=== PATIENT | male | born 2000 | race African-American/Black ===

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

== ENCOUNTER 2021-08-03 12:00 | Emergency (ER) | payer OTHER, SELFPAY ==
--- NOTE | 2021-08-03 12:05 | ED.UPPEXIN ---
HPI - Extremity Injury (Upper) General Chief Complaint: Extremity Injury, Upper Stated Complaint: lt hand ring finger swollen Time Seen by Provider: 08/03/21 12:05 Source: patient, family and RN notes reviewed History of Present Illness HPI narrative: Patient is a 21-year-old male who presents the urgent care with complaints of left finger pain and swelling for approximately 1 week. Patient states that he has been putting ice on it and soaking it in water for pain relief. Denies of any fevers. Denies of any injury to the finger. No other acute complaints. No acute distress noted. Patient and mother aware of the plan of care. Some parts of this dictation were generated by voice recognition software and may contain typographical and/or grammatical inaccuracies. Related Data Allergies Allergy/AdvReac Type Severity Reaction Status Date / Time No Known Allergies Allergy Unknown Verified 12/25/20 14:08 Review of Systems Review of Systems: CONSTITUTIONAL: Denies fever, chills, or sweats. EYES: Denies visual changes, redness, or discharge. ENT: Denies rhinorrhea, congestion, sore throat, or otalgia. CARDIOVASCULAR: Denies chest pain, palpitations, or edema. RESPIRATORY: Denies cough or dyspnea. GASTROINTESTINAL: Denies abdominal pain, nausea, vomiting, or diarrhea. GENITOURINARY: Denies dysuria or hematuria. SKIN: Reports of pain and swelling surrounding the nailbed of the left ring finger MUSCULOSKELETAL: Denies back pain, joint pain, or myalgia. NEUROLOGIC: Denies headache, numbness, or weakness. All other systems reviewed are negative, except as documented in HPI. PMFSH Past Medical History Medical History No acute medical problems Family History Family History Father Diabetes mellitus Hypertension Social History Social History Smoking status: Never smoker Substance use: never Gender identity (if verbalized by the patient): Male Comments At the time of my signature, I reviewed and agree with the nursing past medical, surgical, social, and family history. There is no relevant family history pertinent to the patient complaint. Exam Narrative: GENERAL: This is a well-nourished, well-developed patient, in no apparent distress. HEAD: normocephalic, atraumatic. EYES: PERRL. Sclera clear/white. Vision is grossly intact. EARS: External ears normal NOSE: External nose normal with no obvious nasal discharge, nares without redness, no rhinorrhea. THROAT: Mucous membranes moist NECK: Neck supple CARDIOVASCULAR: Regular rate and rhythm without murmurs, gallops, or rubs. RESPIRATORY: Clear to auscultation. Breath sounds equal bilaterally. No wheezes, rales, or rhonchi. SKIN: Mildly erythemic/edematous radial paronychia to the left ring finger with moderate tenderness NEURO: awake, alert, and oriented to person, place and time. There were no obvious focal neurologic abnormalities. EXTREMITIES: No clubbing, cyanosis, or edema. Capillary refill less than 2 seconds to left upper extremity with positive strong left radial pulse Course Vital Signs Vital signs: Vital Signs Temperature 98.0 F 08/03/21 12:08 Pulse Rate 69 08/03/21 12:08 Respiratory Rate 16 08/03/21 12:08 Blood Pressure 146/80 H 08/03/21 12:08 Pulse Oximetry 100 08/03/21 12:08 Temperature 98.0 F 08/03/21 12:08 Pulse Rate 69 08/03/21 12:08 Respiratory Rate 16 08/03/21 12:08 Blood Pressure 146/80 H 08/03/21 12:08 Pulse Oximetry 100 08/03/21 12:08 Reviewed-patient is informed that they may have pre-hypertension or hypertension based on a blood pressure reading in the department. I recommend the patient call the primary care provider listed on their discharge instructions or a physician of their choice this week to arrange follow-up for further evaluation of po
[2021-08-03 12:08] VITALS: BP 146/80; PULSE 69; RESP 16; TEMP 36.7; O2SAT 100
== END 2021-08-03 12:28 | disposition home or self-care (01) ==
PROVIDERS: Emergency Provider Nurse Practitioner Family
DX: L03.012 Cellulitis of left finger (principal)
CPT/HCPCS: 10060; 99213; G0463

== ENCOUNTER 2023-06-27 00:20 | Emergency (ER) | payer OTHER, SELFPAY ==
--- NOTE | ~2023-06-27 | XR_ITS ---
Left foot Technique: AP, oblique, and lateral views were obtained. Clinical History: Laceration Findings: No acute fracture or dislocation is seen. Osseous alignment is anatomic. Joint spaces are p reserved without erosive or degenerative change. Soft tissues are unremarkable. Impression: Unremarkable left foot radiographs. Reviewed, dictated and finalized at [facility]. ESSING ENGINEER Impression: Unremarkable left foot radiographs.
[2023-06-27 00:27] VITALS: BP 141/75; PULSE 80; RESP 15; TEMP 36.8; O2SAT 100
--- NOTE | 2023-06-27 01:46 | ED.WOUNDLAC ---
HPI - Wound/Laceration General Chief Complaint: Wound/Laceration Stated Complaint: L foot lac, stepped on glass Time Seen by Provider: 06/27/23 01:38 Source: patient Mode of arrival: ambulatory Limitations: no limitations History of Present Illness HPI narrative: This is a 23 year old male that presents to the ER for laceration to the left foot sustained just prior to arrival. Reports he stepped on a glass cup and it shattered. Reports bleeding and pain to the area. Reports he is up to date on tetanus vaccination. Denies numbness. Related Data Allergies Allergy/AdvReac Type Severity Reaction Status Date / Time No Known Allergies Allergy Unknown Verified 12/25/20 14:08 Review of Systems Review of Systems: CONSTITUTIONAL: Denies fever SKIN: Reports laceration All systems reviewed & are unremarkable except as noted in HPI and below PMFSH Past Medical History Medical History No acute medical problems Family History Family History Father Diabetes mellitus Hypertension Social History Social History Smoking status: Never smoker Substance use: never Gender identity (if verbalized by the patient): Male Exam Narrative: GENERAL: Well-appearing, well-nourished, and in no acute distress. HEAD: Normocephalic, atraumatic. EYES: EOMI. EXTREMITIES: Normal range of motion. No edema. Left foot plantar surface with 2cm linear laceration into subcutaneous tissue SKIN: Warm, dry, no rash. NEURO: No focal deficits. Alert and oriented x3. PSYCH: Normal mood and affect Course Course Emergency Course: Patient educated on wound care Vital Signs Vital signs: Vital Signs Temperature 98.2 F 06/27/23 00:27 Pulse Rate 80 06/27/23 00:27 Respiratory Rate 15 06/27/23 00:27 Blood Pressure 141/75 H 06/27/23 00:27 Pulse Oximetry 100 06/27/23 00:27 Oxygen Delivery Room Air 06/27/23 00:27 Temperature 98.2 F 06/27/23 00:27 Pulse Rate 80 06/27/23 00:27 Respiratory Rate 15 06/27/23 00:27 Blood Pressure 141/75 H 06/27/23 00:27 Pulse Oximetry 100 06/27/23 00:27 Oxygen Delivery Room Air 06/27/23 00:27 Procedures Laceration Laceration 1: Date: 06/27/23 Time: 02:25 Site: lower extremity Side (If applicable): left Size (cm): 2 Description: linear Depth: simple, single layer Local Anesthetic: lidocaine 1% Amount of anesthesia used (mL): 2 Pre-repair: wound explored and irrigated ====== Skin Level ====== Skin layer closed with: nylon Size (cm): 4-0 Number of sutures: 2 Technique: simple, interrupted ====== Subcutaneous Layer ====== ====== Muscle Layer ====== ====== Tendon Layer ====== MDM - Wound/Laceration MDM Narrative Medical decision making narrative: Patient presents to the ER for laceration to left foot sustained just prior to arrival. His wound was irrigated and closed with sutures. Patient reports he is up-to-date on tetanus. Left foot x-ray without acute osseous abnormalities or evidence of foreign body. He was educated on further wound care. He is to follow-up with primary provider. He was given warnings to return to the ER Differential Diagnosis Differential diagnosis: Likely laceration and avulsion of skin Imaging Data My impression: Left foot x-ray without acute osseous abnormality or evidence of foreign body Critical Care Time Critical Care Time Critical Care Time: No Discharge Plan Discharge Clinical Impression: Laceration Patient Disposition: Home, Self-Care Condition: Stable Instructions: Antibiotic Form, Care For Your Stitches (ED), Laceration (ED) Additional Instructions: Return to the emergency department if you experience fever, redness or s
== END 2023-06-27 02:38 | disposition home or self-care (01) ==
LOC: ANHED 02:20
PROVIDERS: Emergency Provider Physician Assistant; PCP Internal Medicine
DX: S91.312A Laceration without foreign body, left foot, initial encounter (principal); W25.XXXA Contact with sharp glass, initial encounter
CPT/HCPCS: 12001; 73630; 99283

== ENCOUNTER 2023-07-09 14:31 | Emergency (ER) | payer OTHER, SELFPAY ==
[2023-07-09 14:40] VITALS: BP 123/73; PULSE 100; RESP 15; TEMP 36.4; O2SAT 100
--- NOTE | 2023-07-09 15:44 | ED.GENADULT ---
HPI - General Adult General Chief complaint: Unspecified Stated complaint: stitch removal Time Seen by Provider: 07/09/23 14:48 History of Present Illness HPI narrative: Nixon Atkinson is a 23 y/o male who presents today with reports of stepping on some glass and needs his sutures removed from the bottom of his foot. He states that he had two sutures placed about 12 days ago. Related Data Allergies Allergy/AdvReac Type Severity Reaction Status Date / Time No Known Allergies Allergy Unknown Verified 07/09/23 14:42 Review of Systems Review of Systems: CONSTITUTIONAL: Denies fever, chills, or sweats. EYES: Denies visual changes, redness, or discharge. ENT: Denies rhinorrhea, congestion, sore throat, or otalgia. CARDIOVASCULAR: Denies chest pain, palpitations, or edema. RESPIRATORY: Denies cough or dyspnea. GASTROINTESTINAL: Denies abdominal pain, nausea, vomiting, or diarrhea. GENITOURINARY: Denies dysuria or hematuria. SKIN: wound to the bottom of his left foot and wanting sutures removed MUSCULOSKELETAL: Denies back pain, joint pain, or myalgia. NEUROLOGIC: Denies headache, numbness, dizziness, or weakness. PSYCHIATRIC: Denies anxiety or depression. PMFSH Past Medical History Medical History No acute medical problems Family History Family History Father Diabetes mellitus Hypertension Social History Social History Smoking status: Never smoker Substance use: never Gender identity (if verbalized by the patient): Male Exam Narrative: GENERAL: Well-appearing, well-nourished, and in no acute distress. HEAD: Normocephalic, atraumatic. EYES: PERRLA and EOMI. ENT: Nares clear, no rhinorrhea or epistaxis. Mucous membranes moist. Oropharynx without tonsillar hypertrophy exudate or other lesions. NECK: Supple. No adenopathy or masses. No carotid bruits or JVD CHEST: Clear to auscultation. No respiratory distress. No wheezes rales or rhonchi HEART: Regular rate and rhythm. No murmur heard. Normal peripheral pulses. ABDOMEN: Soft, nontender, nondistended, normal active bowel sounds. EXTREMITIES: Normal range of motion. No edema. healing wound to the bottom of left foot approximated / no drainage/ odor swelling noted. SKIN: Warm, dry, no rash. NEURO: No focal deficits. Alert and oriented x3. PSYCH: Normal mood and affect. Course Vital Signs Vital signs: Vital Signs Temperature 36.4 C 07/09/23 14:40 Pulse Rate 100 07/09/23 14:40 Respiratory Rate 15 07/09/23 14:40 Blood Pressure 123/73 07/09/23 14:40 Pulse Oximetry 100 07/09/23 14:40 Oxygen Delivery Room Air 07/09/23 14:40 Temperature 36.4 C 07/09/23 14:40 Pulse Rate 100 07/09/23 14:40 Respiratory Rate 15 07/09/23 14:40 Blood Pressure 123/73 07/09/23 14:40 Pulse Oximetry 100 07/09/23 14:40 Oxygen Delivery Room Air 07/09/23 14:40 Medical Decision Making MDM Narrative Medical decision making narrative: Wound approximated/no swelling/ erythema/ drainage/ odor/ evidence of infection two sutures removed without difficulty area cleansed / antibiotic ointment placed with Sterile dressing Telfa/ Kerlix Patient tolerated well Encouraged pt to continue to do wound care / and keep covered D/c home with follow up with PCP return precautions provided. Vital Signs Vital Signs: Vital Signs Temperature 36.4 C 07/09/23 14:40 Pulse Rate 100 07/09/23 14:40 Respiratory Rate 15 07/09/23 14:40 Blood Pressure 123/73 07/09/23 14:40 Pulse Oximetry 100 07/09/23 14:40 Oxygen Delivery Room Air 07/09/23 14:40 Temperature 36.4 C 07/09/23 14:40 Pulse Rate 100 07/09/23 14:40 Respiratory Rate 15 07/09/23 14:40 Blood Pressure 123/73 07/09/23 14:40 Pulse Oximetry 100 07/09/23 14:40 Oxygen Delivery Room Air
--- NOTE | 2023-07-09 15:51 | PC.NURSE ---
Stitches to left foot removed by EDP, Pt tolerated the procedure well without difficulty, area healed no s/s of infection.
== END 2023-07-09 16:13 | disposition home or self-care (01) ==
PROVIDERS: Emergency Provider Nurse Practitioner Family; PCP Internal Medicine
DX: S91.302D Unspecified open wound, left foot, subsequent encounter (principal); W25.XXXD Contact with sharp glass, subsequent encounter
CPT/HCPCS: 15853; 99281

== ENCOUNTER 2024-08-24 16:50 | Emergency (ER) | payer OTHER, SELFPAY ==
--- NOTE | ~2024-08-24 | XR_ITS ---
XR chest 2V Ordering provider: Niesha Myers PA-C History: 24 years Male with . cough, congetsion . Comparison: May 16, 2011 cysts FINDINGS: MEDIASTINUM: The cardiac silhouette is not enlarged. LUNGS: No infiltrates, effusions or pneumothorax. OTHER: No free air under the diaphragm. IMPRESSION: No acute cardiopulmonary pathology. Reviewed, dictated and finalized at location A. UMER STUDIES PROFESSOR
[2024-08-24 17:15] VITALS: BP 164/80; PULSE 99; RESP 19; TEMP 36.9; O2SAT 100
[2024-08-24 19:34] VITALS: O2SAT 100
[2024-08-24 19:38] VITALS: BP 160/84; PULSE 92; RESP 18; O2SAT 100
[2024-08-24 20:18] LABS: Influenza A QL RT-PCR Positive (Negative); Influenza B QL RT-PCR Negative (Negative); RSV RNA, RT-PCR Negative (Negative); SARS-CoV-2 RNA PCR Negative (Negative)
[2024-08-24 21:08] VITALS: TEMP 37.4
--- NOTE | 2024-08-24 21:11 | ED_ITS ---
HPI - URI/Sore Throat General Chief Complaint: Upper Respiratory Infection Stated Complaint: Congestion, Runny Nose Time Seen by Provider: 08/24/24 20:35 Source: patient Mode of arrival: ambulatory Limitations: no limitations History of Present Illness HPI Narrative: Patient is a 24-year-old male who presents the ED with report of URI symptoms. Patient reports having cough, congestion, rhinorrhea, sinus pressure, body aches, headache. States symptoms have been ongoing for the last couple weeks. Thought they were allergies. He has been taking allergy medicine, DayQuil, NyQuil with some improvement. Symptoms have become worse over the last couple of days. Denies fevers. Denies shortness of breath. Denies nausea, vomiting. Related Data Allergies Allergy/AdvReac Type Severity Reaction Status Date / Time No Known Allergies Allergy Unknown Verified 07/09/23 14:42 Review of Systems Review of Systems: All systems reviewed & are unremarkable except as noted in HPI. All systems reviewed & are unremarkable except as noted in HPI and below PMFSH Past Medical History Medical History No acute medical problems Family History Family History Father Diabetes mellitus Hypertension Social History Social History Smoking status: Never smoker Substance use: never Gender identity (if verbalized by the patient): Male Exam Narrative: GENERAL: Well appearing, obese with BMI of 38.1, non-toxic, in no acute distress. HEAD: Normocephalic, atraumatic. RESPIRATORY: Airway patent, respirations nonlabored. Clear to auscultation bilaterally, no rales, rhonchi, wheezing. CARDIOVASCULAR: Regular rate and rhythm MUSCULOSKELETAL: Moves all extremities. No gross deformities. SKIN: Warm, dry, normal color. NEURO: A&O X3. Speech clear. PSYCHIATRIC: Appropriate mood and affect. Normal interaction. Course Vital Signs Vital signs: Vital Signs Temperature 98.5 F 08/24/24 17:15 Pulse Rate 99 08/24/24 17:15 Respiratory Rate 19 08/24/24 17:15 Blood Pressure 164/80 H 08/24/24 17:15 Pulse Oximetry 100 08/24/24 17:15 Oxygen Delivery Room Air 08/24/24 17:15 Temperature 99.4 F 08/24/24 21:08 Pulse Rate 92 08/24/24 19:38 Respiratory Rate 18 08/24/24 19:38 Blood Pressure 160/84 H 08/24/24 19:38 Pulse Oximetry 100 08/24/24 19:38 Oxygen Delivery Room Air 08/24/24 19:34 MDM - URI/Sore Throat MDM Narrative Medical decision making narrative: Patient presented to ED with several day history of worsening URI symptoms. Influenza A positive. Consistent with clinical picture. Discussed management of such, will prescribe Tessalon Perles. Chest x-ray is clear. Patient will be discharged. Given strict return precautions. He agrees with plan. Discharged in stable condition. Medical Records Attestation: I reviewed the patient's medical records. Lab Data Attestation: I reviewed the patient's lab results. Labs: Lab Results 08/24/24 Range/Units 19:32 Influenza A (RT-PCR) Positive A (Negative) Influenza B (RT-PCR) Negative (Negative) RSV (RT-PCR) Negative (Negative) SARS-CoV-2 RNA (RT-PCR) Negative (Negative) Imaging Data Attestation: I personally reviewed and interpreted this imaging study as follows: Radiologist's impression: ITS Impressions Chest X-Ray 08/24/24 19:59 IMPRESSION: No acute cardiopulmonary pathology. Discharge Plan Discharge Clinical Impression: Influenza A Patient Disposition: Home, Self-Care Condition: Stable Instructions: Antibiotic Form, Influenza (ED), Viral Syndrome (ED), Cold Symptoms (ED) Additional Instructions: You were diagnosed with Influenza A today. Isolate at home as you are contagious. Stay well-hydrated at home. Recommend electrolyte rich fluids, Gatorade, Pedialyte, body armor. Utilize Tessalon Perles as needed for cough. Recommend Tylenol and Ibuprofen around the clock for discomfort and/or fevers. Recommend [id number] cough and cold medicines for symptom relief, Delsym, Mucinex, DayQuil, NyQuil, Sudafed, Robitussin, TheraFlu. Follow with primary care doctor upon resolution of symptoms. Return to the ED if you experience chest pain, difficulty breathing, unable to keep down food or drink, severe pain, or any other symptoms of concern. Patient Language: Arabic Prescriptions: New benzonatate 200 mg capsule 200 mg PO TID PRN (Reason: cough) Qty: 15 0RF No Action sulfamethoxazole-trimethoprim [Bactrim DS] 800-160 mg tablet 1 tablet PO Q12H Qty: 14 0RF levofloxacin 750 mg tablet 750 mg PO DAILY 5 Days Qty: 5 0RF Follow-up/Referrals: Carlos,MD Melo ([place]) [Primary Care Provider] - Time of Disposition: 21:14
[2024-08-24] MEDS: ACETAMINOPHEN 500 MG TABLET 1000 MG PO (21:19)
[2024-08-24] MEDS: BENZONATATE 100 MG CAPSULE 200 MG PO (21:20)
[2024-08-24] MEDS: KETOROLAC (*BKC) 60 MG/2 ML VIAL IM (21:22)
[2024-08-24 21:35] VITALS: BP 153/80; PULSE 94; RESP 17; TEMP 37.4; O2SAT 99
[2024-08-24 21:36] VITALS: BP 153/80; PULSE 94; RESP 17; O2SAT 99
== END 2024-08-24 21:38 | disposition home or self-care (01) ==
PROVIDERS: Emergency Provider Physician Assistant; PCP Internal Medicine
DX: J10.1 Influenza due to other identified influenza virus with other respiratory manifestations (principal); Z20.822 Contact with and (suspected) exposure to COVID-19
CPT/HCPCS: 71046; 87637; 96372; 99283; A9270; J1885

== ENCOUNTER 2024-12-10 09:29 | Emergency (ER) | payer OTHER, SELFPAY ==
--- NOTE | ~2024-12-10 | XR_ITS ---
EXAMINATION: XR shoulder RT min 2V DATE: 12/10/2024 10:26 INDICATION: Right shoulder pain post football injury one week prior TECHNIQUE: AP internally and externally rotated, AP oblique externally rotated and transscapular Y vi ews of the right shoulder were obtained. COMPARISON: Chest radiograph dated 08/24/2024 FINDINGS: Normal alignment. No fracture. Glenohumeral joint is normal. Acromioclavicular joint is normal. Soft tissues are unremarkable. Visualized portions of the right lung are clear. IMPRESSION: Normal right shoulder radiographs. Reviewed, dictated and finalized at location A.
[2024-12-10 09:30] VITALS: BP 145/89; PULSE 55; RESP 14; TEMP 36.7; O2SAT 100
--- OUTSIDE RECORDS SUMMARY | 2024-12-10 10:28 | XMS_ITS | Clinical Summary ---
Author Organization [facility] [address] [place] Address [address] [place] [id number] Care Team Providers Care Emergency Veterinary Assistant Name Role Phone No, Physician Primary Care Provider [phone] Allergies No known active allergies Medications benzonatate (TESSALON) 200 mg capsuleIndicati ons:Acute cough Take 1 capsule (200 mg total) by mouth 3 (three) times a day as needed for cough keep tessalon out of reach of children, especially children under the age of 10, due to possible serious risk such as if ingested by children under the age of 10. 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 Gender Identity Male 03/29/2023 11:55 AM CDT Sexual Orientation Not on file Obstetrics History Last Filed Vital Signs Vital Sign Reading Time Taken Comments Blood Pressure 118/74 05/12/2023 12:17 PM CDT Pulse 58 05/12/2023 12:17 PM CDT Temperature 37 C (98.6 F) 05/12/2023 12:17 PM CDT Respiratory Rate 16 05/12/2023 12:17 PM CDT Oxygen Saturation 98% 05/12/2023 12:17 PM CDT Inhaled Oxygen Concentration - - Weight 118.4 kg (261 lb) 05/12/2023 12:17 PM CDT Height 175.3 cm (5' 9 ) 05/12/2023 12:17 PM CDT Body Mass Index 38.54 05/12/2023 12:17 PM CDT Plan of Treatment Health Maintenance Due Date Last Done Comments Depression Screening 2001 Hepatitis C Screening 2001 DTaP/Tdap/Td Vaccine (4 - Tdap) 2012 2001, 2001, 2001 Varicella Vaccines (1 of 2 - 13+ 2-dose series) 2014 HPV Vaccines (1 - Male 3-dos e series) 2016 Meningococcal B Vaccine (1 o f 2 - Standard) 2017 Regular Well Visit/Exam 18-64 2019 Covid-19 Vaccine (3 - 2023-2 5 season) 2024 07/16/2021, 06/20/2021 Influenza Vaccine (#1) 2024 Hepatitis B Screening Completed 2001 , 2001, 2001 Pneumococcal vaccine <65 Aged Out 002, 2001, 2001 No longer eligible based on patient's age to complete this topic Insurance [facility] [id number] Care Teams Emergency Veterinary Assistant Relationship Specialty Start Date End Date No, Physician PCP - General 8/9/23
--- OUTSIDE RECORDS SUMMARY | 2024-12-10 10:28 | XMS_ITS | Referral Summary ---
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
--- OUTSIDE RECORDS SUMMARY | 2024-12-10 10:28 | XMS_ITS | Clinical Summary ---
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 Gender Identity Not on file Sexual Orientation Not on file Plan of Treatment Health Maintenance Due Date Last Done Comments Hepatitis C Virus (HCV) Screening 2001 TdaP Immunization 2001 Human Papillomavirus (HPV) Immunization (1 - Male 3-dose series) 2016 Meningococcal B Immunization (1 of 2 - Standard) 2017 Influenza Immunization (#1) 2024 SARS-COV-2 Immunization ( season) 2024 Respiratory Syncytial Virus (RSV) Immunization (Adult) (1 - 1-dose 75+ series) 2076 DTaP/Tdap/Td Immunization Discontinued 2001, 2001, 2001 Hepatitis B Immunization Completed 002, 2001, 2001 Pneumococcal Immunization Combined Aged Out 2001, 2001, 2001 No longer eligible based on patient's age to complete this topic Meningococcal Immunization (ACWY) Completed 05/21/2018 Rotavirus Immunization Aged Out No lo nger eligible based on patient's age to complete this topic Insurance [employer] on file
--- OUTSIDE RECORDS SUMMARY | 2024-12-10 10:28 | XMS_ITS | Clinical Summary ---
Author Organization [facility] Address [address] [place] [address] Care Team Providers Care Biostatistician Name Role Phone Unavailable Primary Care Provider Unavailabl e Source Comments [facility],non-owned Affiliates and Associated Physician Practices is amultiple site organization consisting of ambulatory clinics and hospital sitesin [place], [place], [place]. This disclosure is being madepursuant to the Care Everywhere program and may not contain all information available regarding this patient. Last updated 18.[facility] Allergies No known active allergies Medications * Be aware that medications may not be up to date on this document. Alwaysverify current medications with the patient. No known medications Immunizations Immunization Administration Dates Next Due MENINGOCOCCAL ACWY (MCV4P) VAC IM 05/21/2018 Family History Medical History Relation Name Comments Diabetes - Type 2 Father Hypertension Father Other Father A-Fib Cancer - Pancreatic Maternal Uncle Relation Name Status Comments Father Alive Maternal Uncle Mother Alive Social History Tobacco Use Types Packs/Day Years Used Date Smoking Tobacco: Never Smokeless Tobacco: Never Comments:non smoking househo ld Alcohol Use Standard Drinks/Week Comments No 0 (1 standard drink = 0.6 oz pur e alcohol) Sex and Gender Information Value Date Recorded Sex Assigned at Not on file Legal Sex Male 1:55 PM CDT Gender Identity Not on file Sexual Orientation Not on file Last Filed Vital Signs Vital Sign Reading Time Taken Comments Blood Pressure 116/72 12/20/2018 2:24 PM CDT Pulse 70 12/20/2018 2:19 PM CDT Temperature 36.5 C (97.7 F) 12/20/2018 2:19 PM CDT Respiratory Rate 16 12/20/2018 2:19 PM CDT Oxygen Saturation 98% 12/20/2018 2:19 PM CDT Inhaled Oxygen Concentration - - Weight 109.8 kg (242 lb) 12/20/2018 2:19 PM CDT Height 172.7 cm (5' 8 ) 12/20/2018 2:19 PM CDT Body Mass Index 36.8 12/20/2018 2:19 PM CDT Plan of Treatment Health Maintenance Due Date Last Done Comments HIV SCREENING 2016 HPV VACCINE (1 - Male 3-dose series) 2016 MENINGOCOCCAL (Group B) VACC INE SHARED DECISION-MAKING (1 of 2 - Standard) 2017 HEPATITIS C SCREENING 05/18/2019 DTAP/TDAP/TD VACCINES (1 - Tdap) 2020 HEPATITIS B VACCINE (1 of 3 - 19+ 3-dose series) 2020 COVID-19 VACCINE (1 - 2023-2 5 season) 2024 DEPRESSION SCREENING 08/21/2024 INFLUENZA VACCINE (Season Ended) 2025 ZOSTER VACCINE (1 of 2) 2051 MENINGOCOCCAL GROUPS A/C/Y/W VACCINE Completed 05/21/2018 HIB VACCINE Aged Out No longer eligi ble based on patient's age to complete this topic PNEUMOCOCCAL VACCINE Aged Out No long er eligible based on patient's age to complete this topic Insurance [employer]
--- NOTE | 2024-12-10 11:06 | ED.UPPEXIN ---
HPI - Extremity Injury (Upper) General Chief Complaint: Extremity Injury, Upper Stated Complaint: right shoulder pain Time Seen by Provider: 12/10/24 10:42 Source: patient Mode of arrival: ambulatory Limitations: no limitations History of Present Illness HPI narrative: This is a 24-year-old male that presents to the emergency department for right shoulder injury. Reports he was playing football and went to tackle someone and felt a pop in the right shoulder. He has had pain with range of motion since. Denies weakness or numbness. Related Data Allergies Allergy/AdvReac Type Severity Reaction Status Date / Time No Known Allergies Allergy Unknown Verified 12/10/24 09:35 Review of Systems Review of Systems: CONSTITUTIONAL: Denies fever MUSCULOSKELETAL: Reports joint pain, and myalgia. NEUROLOGIC: Denies numbness, or weakness. All systems reviewed & are unremarkable except as noted in HPI and below PMFSH Past Medical History Medical History No acute medical problems Family History Family History Father Diabetes mellitus Hypertension Social History Social History Smoking status: Never smoker Substance use: never Gender identity (if verbalized by the patient): Male Exam Narrative: GENERAL: Well-appearing, well-nourished, and in no acute distress. HEAD: Normocephalic, atraumatic. EYES: EOMI. EXTREMITIES: Normal range of motion. No edema or obvious deformity. Normal radial pulse. Normal sensation SKIN: Warm, dry, no rash. NEURO: No focal deficits. Alert and oriented x3. PSYCH: Normal mood and affect Course Course Emergency Course: Patient updated on his workup and agrees with plan of care Vital Signs Vital signs: Vital Signs Temperature 98.1 F 12/10/24 09:30 Pulse Rate 55 L 12/10/24 09:30 Respiratory Rate 14 12/10/24 09:30 Blood Pressure 145/89 H 12/10/24 09:30 Pulse Oximetry 100 12/10/24 09:30 Oxygen Delivery Room Air 12/10/24 09:30 Temperature 98.1 F 12/10/24 09:30 Pulse Rate 55 L 12/10/24 09:30 Respiratory Rate 14 12/10/24 09:30 Blood Pressure 145/89 H 12/10/24 09:30 Pulse Oximetry 100 12/10/24 09:30 Oxygen Delivery Room Air 12/10/24 09:30 MDM - Extremity Injury (Upper) MDM Narrative Medical decision making narrative: Patient presents emergency department after right shoulder injury several days prior to arrival. He is neurovascularly intact. Right shoulder x-ray without acute osseous abnormalities. Patient placed in a sling for comfort. Will be given follow-up with Orthopedics. He was given warnings to return to the ER Differential Diagnosis Differential diagnosis: Likely other (shoulder sprain, shoulder dislocation, AC injury) Imaging Data Radiologist's impression: ITS Impressions Shoulder X-Ray 12/10/24 10:37 IMPRESSION: Normal right shoulder radiographs. Critical Care Time Critical Care Time Critical Care Time: No Discharge Plan Discharge Clinical Impression: Shoulder sprain Qualifiers: Encounter type: initial encounter Shoulder sprain type: unspecified sprain Laterality: right Qualified Code(s): S43.401A - Unspecified sprain of right shoulder joint, initial encounter Patient Disposition: Home Condition: Stable Instructions: Shoulder Sprain (ED) Additional Instructions: Return to the ER if you experience fever, redness and swelling of your arm, weakness, numbness, or any other symptoms that are concerning to you Rest, use ice/heat, take anti-inflammatories (Aleve, Ibuprofen, Naproxen, etc) or Tylenol as needed for pain Follow up with your primary care doctor and/or orthopedics Patient Language: Icelandic Prescriptions: No Action sulfamethoxazole-trimethoprim [Bactrim DS] 800-160 mg tablet 1 tablet PO Q12H Qty: 14 0RF levofloxacin 750 mg tablet 750 mg PO DAILY 5 Days Qty: 5 0RF benzonatate 200 mg capsule 200 mg PO TID PRN (Reason: cough) Qty: 15 0RF Follow-up/Referrals: DaquanKameron MD ([place]) [Primary Care Provider] - Ganga Lopez MD [Physician] -
--- OUTSIDE RECORDS SUMMARY | 2024-12-10 12:59 | XMS_ITS | Clinical Summary ---
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
--- OUTSIDE RECORDS SUMMARY | 2024-12-10 12:59 | XMS_ITS | Referral Summary ---
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
--- OUTSIDE RECORDS SUMMARY | 2024-12-10 12:59 | XMS_ITS | Clinical Summary ---
Author Organization [facility] Address [address] [place] [address] Care Team Providers Care Head Of Physics Name Role Phone Unavailable Primary Care Provider Unavailabl e Source Comments [facility],non-owned Affiliates and Associated Physician Practices is amultiple site organization consisting of ambulatory clinics and hospital sitesin [place], [place], [place] and [place]. This disclosure is being madepursuant to the Care Everywhere program and may not contain all information available regarding this patient. Last updated 18.[facility] Allergies No known active allergies Medications * [...]
--- OUTSIDE RECORDS SUMMARY | 2024-12-10 12:59 | XMS_ITS | Clinical Summary ---
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
== END 2024-12-10 11:23 | disposition home or self-care (01) ==
PROVIDERS: Emergency Provider Physician Assistant; PCP Internal Medicine
DX: S43.401A Unspecified sprain of right shoulder joint, initial encounter (principal); W51.XXXA Accidental striking against or bumped into by another person, initial encounter
CPT/HCPCS: 73030; 99283; A4565